=== PATIENT | female | born 1965 | race Caucasian/White ===

== ENCOUNTER 2016-06-02 07:53 | Day surgery (SDC) | payer OTHER, BC ==
[2016-06-02 08:24] VITALS: BMI 31.1
[2016-06-02] MEDS ORDERED: LIDOCAINE HCL/PF 1% SDV 5ML VIAL ONE (09:25)
[2016-06-02] MEDS ORDERED: PROPOFOL 20 ML ONE ×2 (09:26)
[2016-06-02 10:27] VITALS: TEMP 97.7
[2016-06-02 11:06] VITALS: BP 129/87; PULSE 60
--- NOTE | 2016-06-03 13:46 | PATH ---
Surgical Pathology Report Patient Name: SEJAL SWANN [facility]. Rec. #: [id number] /Age/Gender: 1965 (Age: 50) / F Account: [id number] Location: [facility]-ENDOSCOPY Taken: 06/02/2016 Received: 06/02/2016 Reported: 06/03/2016 Physicians: Jd Marin M.D. Specimen(s) Received A: BX TRANSVERSE COLON POLYP B: BX DESCENDING COLON POLYP C: BX RECTAL POLYP Clinical History Screening Diverticulosis, polyps, hemorrhoids Final Diagnosis A. COLON, TRANSVERSE, POLYP, BIOPSY: POLYPOID FRAGMENT OF COLONIC MUCOSA WITH REACTIVE LYMPHOID AGGREGATE AND SURFACE HYPERPLASTIC CHANGE. B. COLON, DESCENDING, POLYP, BIOPSY: POLYPOID FRAGMENT OF COLONIC MUCOSA WITH PROMINENT REACTIVE LYMPHOID AGGREGATE SURFACE HYPERPLASTIC CHANGE. C. RECTUM, POLYP, BIOPSY: TUBULAR ADENOMA. Electronically Signed Benton Saenz M.D. Gross Description A. Received in formalin, labeled "biopsy transverse colon" are 3 martinez, irregular portions of soft tissue ranging from 0.1-0.5 cm in greatest dimension. The specimens are submitted in toto in one cassette. B. Received in formalin, labeled "biopsy descending colon polyp" is a martinez, irregular portion of soft tissue measuring 0.8 cm in greatest dimension. The specimen is submitted in toto in one cassette. C. Received in formalin, labeled "biopsy rectal polyp" is a martinez, irregular portion of soft tissue measuring 0.3 cm in greatest dimension. The specimen is submitted in toto in one cassette. /06/02/2016 saudi06/02/2016
== END 2016-06-02 11:06 | disposition home or self-care (01) ==
LOC: JASU-ENDO 07:53
PROVIDERS: ATTEND Internal Medicine Gastroenterology
PROC: 0DBP8ZX Excision of Rectum, Via Natural or Artificial Opening Endoscopic, Diagnostic (ICD-10-PCS; 2016-06-02)
PROC: 0DBK8ZX Excision of Ascending Colon, Via Natural or Artificial Opening Endoscopic, Diagnostic (ICD-10-PCS; principal; 2016-06-02 09:00)
DX: Z12.11 Encounter for screening for malignant neoplasm of colon (principal); D12.2 Benign neoplasm of ascending colon; K62.1 Rectal polyp; K64.8 Other hemorrhoids
CPT/HCPCS: 84703; 88305-TC